=== PATIENT | male | born 1980 | race Caucasian/White ===

== ENCOUNTER 2019-01-11 08:18 | Outpatient (CLI) | payer OTHER | END 2019-01-11 08:19 | disposition home or self-care (01) | LOC: EEG 08:18 | PROVIDERS: ATTEND Family Medicine | DX: R55 Syncope and collapse (principal) | CPT/HCPCS: 95816 ==

== ENCOUNTER 2019-01-22 13:33 | Outpatient (CLI) | payer OTHER ==
--- NOTE | 2019-01-22 15:02 | ULT ---
CAROTID ULTRASOUND WITH REINOSO SCALE AND DOPPLER DUPLEX COLOR FLOW IMAGING SPECTRAL ANALYSIS PERFORMED: DATE: 01/22/19 INDICATION: Cerebral infarction. FINDINGS: There is mild intimal thickening/plaque formation. PEAK SYSTOLIC VELOCITY (CM/S): Right CCA 98 Left CCA 121 Right ICA 64 Left ICA 62 There is antegrade flow within the visualized bilateral vertebral arteries. IMPRESSION: 1. No hemodynamically significant stenosis of the right internal carotid artery. 2. No hemodynamically significant stenosis of the left internal carotid artery. POS: TPC
== END 2019-01-22 13:34 | disposition home or self-care (01) ==
LOC: ULT 13:33
PROVIDERS: ATTEND Family Medicine
DX: I63.9 Cerebral infarction, unspecified (principal); I37.1 Nonrheumatic pulmonary valve insufficiency; I34.0 Nonrheumatic mitral (valve) insufficiency
CPT/HCPCS: 93306; 93880

== ENCOUNTER 2019-07-03 20:11 | Emergency (ER) | payer OTHER ==
[2019-07-03] MEDS ORDERED: Lidocaine 1% w/Epinephrine 1:100K 20 ML VIAL ONE (20:18)
[2019-07-03] MEDS ORDERED: CEFAZOLIN 1 GM VIAL ONE (20:19)
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
== END 2019-07-03 21:47 | disposition home or self-care (01) ==
LOC: EEVIPCON 20:11 → ERS 20:11
DX: S61.402A Unspecified open wound of left hand, initial encounter (principal); Z79.899 Other long term (current) drug therapy; W34.00XA Accidental discharge from unspecified firearms or gun, initial encounter
CPT/HCPCS: 12002; 96365; G0390; J0690

== ENCOUNTER 2019-07-19 13:30 | Day surgery (SDC) | payer OTHER ==
[2019-07-18 15:04] VITALS: BMI 26.6
[~2019-07-19 13:30] MED LIST: Glycopyrrolate 0.2 MG/ML 5 ML SYRINGE ONE; Lidocaine 1% PF 5 ML VIAL ONE; Ondansetron PF 4 MG/2 ML Vial ONE; PROPOFOL 200 MG/20 ML VIAL ONE
[2019-07-19 13:52] LABS: #Lymphocytes 1.4 thou/uL (1.20-3.40); #Monocytes 0.5 thou/uL (0.11-0.59); #Neutrophils 5.9 thou/uL (1.40-6.50); %Basophils 0.4 % (0.0-1.0); %Eosinophils 0.6 % (0.0-10.0); %Lymphocytes 17.5 % (21.0-51.0); %Monocytes 6.1 % (0.0-10.0); %Neutrophils 75.4 % (42.0-75.0); Hemoglobin 15.5 g/dL (14.0-18.0); Mean Corpuscular HGB CONC 35.4 g/dL (32.0-36.0); Mean Corpuscular Hemoglobin 32.1 pg (27.0-31.0); Mean Corpuscular Volume 90.7 fL (78.0-98.0); Platelet Count 202 thou/uL (130-400); RBC Distribution Width 11.6 % (11.5-14.5); Red Blood Cell (RBC) Count 4.84 mill/uL (4.70-6.10); White Blood Cell (WBC) Count 7.8 thou/uL (4.8-10.8)
[2019-07-19] MEDS ORDERED: Bupivacaine 0.25% HCL 30 ML VIAL ONE (14:12)
[2019-07-19] MEDS ORDERED: Thrombin 5000 UNITS/5 ML VIAL ONE (14:12)
[2019-07-19] MEDS ORDERED: Bacitracin Zinc Ointment 30 gm TUBE ONE (14:12)
[2019-07-19] MEDS ORDERED: Bupivacaine PF 0.5% 30 ML VIAL ONE (14:12)
[2019-07-19] MEDS ORDERED: Fentanyl 100 MCG/2 ML VIAL ONE (14:14)
[2019-07-19] MEDS ORDERED: Ketorolac Tromethamine 30 MG/ML VIAL ONE (15:55)
[2019-07-19] MEDS ORDERED: HYDROcodone/Acetaminophen 5/325 mg Tablet ONE (16:42)
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
== END 2019-07-19 17:30 | disposition home or self-care (01) ==
LOC: EEVIPCON → SDC 13:30
PROVIDERS: ATTEND Orthopaedic Surgery Hand Surgery
PROC: 0HRGX73 Replacement of Left Hand Skin with Autologous Tissue Substitute, Full Thickness, External Approach (ICD-10-PCS; principal; 2019-07-19)
DX: S61.432A Puncture wound without foreign body of left hand, initial encounter (principal); Z79.82 Long term (current) use of aspirin; Z79.899 Other long term (current) drug therapy; W34.00XA Accidental discharge from unspecified firearms or gun, initial encounter
CPT/HCPCS: 36415; 85025; J0690; J1885; J3010; J3490; S0020